=== PATIENT | female | born 1950 | race Caucasian/White ===

== ENCOUNTER → 2017-05-07 | Outpatient (CLI) | payer OTHER | LOC: CIMAGING 10:53 | PROVIDERS: ATTEND Physician Assistant | DX: Z12.31 Encounter for screening mammogram for malignant neoplasm of breast (principal); Z85.3 Personal history of malignant neoplasm of breast | CPT/HCPCS: G0202 ==

== ENCOUNTER 2017-07-07 16:43 | Emergency (ER) | payer OTHER ==
[2017-07-07 16:57] VITALS: TEMP 97.9
--- NOTE | 2017-07-07 17:22 | EDPHY ---
H & P Stated Complaint: TIA Suspicioun Time Seen by Provider: 07/07/17 16:59 HPI/ROS: CHIEF COMPLAINT: TIA HISTORY OF PRESENT ILLNESS: The patient is a 67-year-old female who thinks she may have had a TIA on Friday. She states that she was trying to play a math game on her phone and had trouble remembering arithmetic and the rules of the game which is very unusual for her. She then looked at the calender and could not remember what year it was and thought it very unusual that it was 2017. She then tried playing a different game on her phone and also had trouble with remembering the rules. She states that the symptoms persist for about 30 min and then improved. She did not try to speak with anyone at the time. She did not have any trouble walking or moving. She denies trauma, no headache. No chest pain. No syncope. No dizziness. She does complain of mild left sinus pressure and which she thinks is a sinus infection that began on . No fevers. No neck pain or stiffness. She states that over the last few days however and even today she is having some trouble with her memory. Particularly she is having trouble remembering people's names which she is usually very good at. She does not have any trouble with word finding for normal objects or conversation. She denies history of cardiac disease. She does not take any medications. REVIEW OF SYSTEMS: Constitutional: denies: chills, fever, recent illness, recent injury EENTM: denies: blurred vision, double vision, nose congestion Respiratory: denies: cough, shortness of breath Cardiac: denies: chest pain, irregular heart rate, lightheadedness, palpitations Gastrointestinal/Abdominal: denies: abdominal pain, diarrhea, nausea, vomiting, blood streaked stools Genitourinary: denies: dysuria, frequency, hematuria, pain Musculoskeletal: denies: joint pain, muscle pain Skin: denies: lesions, rash, jaundice, bruising Neurological: See HPI Hematologic/Lymphatic: denies: blood clots, easy bleeding, easy bruising Immunologic/allergic: denies: HIV/AIDS, transplant EXAM: GENERAL: Well-appearing, well-nourished and in no acute distress. HEAD: Atraumatic, normocephalic. EYES: Pupils equal round and reactive to light, extraocular movements intact, sclera anicteric, conjunctiva are normal. ENT: TMs normal, nares patent, oropharynx clear without exudates. Moist mucous membranes. NECK: Normal range of motion, supple without lymphadenopathy or JVD. LUNGS: Breath sounds clear to auscultation bilaterally and equal. No wheezes rales or rhonchi. HEART: Regular rate and rhythm without murmurs, rubs or gallops. ABDOMEN: Soft, nontender, normoactive bowel sounds. No guarding, no rebound. No masses appreciated. BACK: No CVA tenderness, no spinal tenderness, step-offs or deformities EXTREMITIES: Normal range of motion, no pitting or edema. No clubbing or cyanosis. NEUROLOGICAL: NIH stroke score 0. Cranial nerves II through XII grossly intact. Normal speech, normal gait. 5/5 strength, normal movement in all extremities, normal sensation PSYCH: Normal mood, normal affect. SKIN: Warm, dry, normal turgor, no visible rashes or lesions. Source: Patient Exam Limitations: No limitations - Personal History Current Tetanus Diphtheria and Acellular Pertussis (TDAP): Yes - Medical/Surgical History Hx Asthma: No Hx Chronic Respiratory Disease: No Hx Diabetes: No Hx Cardiac Disease: No Hx Renal Disease: No Hx Cirrhosis: No Hx Alcoholism: No Hx HIV/AIDS: No Hx Splenectomy or Spleen Trauma: No Other PMH: DEPRESSION. RT BREAST CANCER. TONSILectomy. APPY. RT ACL repair ( 2000) - Family History Significant Family History: No pertinent family hx - Social History Smoking Status: Former smoker Alcohol Use: Sober Drug Use: None Constitutional: Initial Vital Signs Temperature (C) 36.6 C 07/07/17 16:52 Heart Rate 63 07/07/17 16:52 Respiratory Rate 12 07/07/17 16:52 Blood Pressure 122/71 H 07/07/17 16:52 O2 Sat (%) 96 07/07/17 16:52 O2 Delivery Mode Room Air Allergies/Adverse Reactions: ADHESIVE TAPE Allergy (Uncoded 08/18/15 06:58) Rash Home Medications: Medication Instructions Recorded Ascorbic Acid [Vitamin C 500 mg 1,000 mg PO DAILY 01/12/15 (*)] Cholecalciferol Vit D3 [Vitamin D3 1,000 units PO DAILY 01/12/15 (*)] [place]-3 Fatty Acids [Fish Oil 1000 1,000 mg PO DAILY 01/12/15 mg (*)] Vitamin B Complex [B Complex] 1 each PO DAILY 01/12/15 Acetaminophen [Tylenol 325mg (*)] 650 mg PO Q4 PRN #0 tab 08/18/15 Escitalopram Oxalate [Lexapro 10 10 mg PO DAILY #0 tab 08/18/15 MG] Medical Decision Making - Diagnostics EKG Interpretation: An EKG obtained and was read and documented in trace view. Please see trace view for full reading and report. Sinus rhythm, no acute ischemic changes or arrhythmias Imaging Results: Imaging Impressions Head CT 07/07/17 17:18 Impression: 1. Normal brain. No intracranial hemorrhage, mass, or swelling. 2. Clear sinuses. Findings discussed with Emergency Department physician, Orlando Johnson at 2017, 17:38. Imaging: Discussed imaging studies w/ call specialist Radiologist ED Course/Re-evaluation: 6:50 a.m. the patient is asymptomatic. I recommended admission for further testing including MRI and carotid Dopplers. The patient and refused. I will contact her primary to discussed follow-up as an outpatient and workup as an outpatient. We reviewed the ABCD squared score which is two, together and discussed her risks. I will start her on aspirin. 7 o'clock I discussed the case with Dr. Christianson who agrees with the plan and will follow up with the patient. Differential Diagnosis: Partial list of the Differential diagnosis considered include but were not limited to; TIA, CVA, the infection and although unlikely based on the history and physical exam, I also considered the dissection, arrhythmia, concussion. I discussed these differential diagnoses and the plan with the patient as well as the usual and expected course. The patient understands that the diagnosis is provisional and that in medicine we are not always correct and that further workup is often warranted. Usual and customary warnings were given. All of the patient's questions were answered. The patient was instructed to return to the emergency department should the symptoms at all worsen or return, otherwise to followup with the physician as we discussed. - Data Points Laboratory Results: Laboratory Results 07/07/17 17:45 07/07/17 17:45 07/07/17 07/07/17 07/07/17 18:15 17:45 17:45 WBC RBC Hgb Hct MCV MCH MCHC RDW Plt Count MPV Neut % (Auto) Lymph % (Auto) [place] % (Auto) Eos % (Auto) Baso % (Auto) Nucleat RBC Rel Count Absolute Neuts (auto) Absolute Lymphs (auto) Absolute Monos (auto) Absolute Eos (auto) Absolute Basos (auto) Absolute Nucleated RBC Immature Gran % Immature Gran # PT 13.1 SEC SEC (12.0-15.0) INR 1.00 (0.83-1.16) Sodium 141 mEq/L mEq/L (135-145) Potassium 4.3 mEq/L mEq/L (3.5-5.2) Chloride 100 mEq/L mEq/L (97-110) Carbon Dioxide 28 mEq/l mEq/l (22-31) Anion Gap 13 mEq/L mEq/L (8-16) BUN 16 mg/dL mg/dL (7-23) Creatinine 0.8 mg/dL mg/dL (0.6-1.0) Estimated GFR > 60 Glucose 95 mg/dL mg/dL (70-100) Calcium 9.3 mg/dL mg/dL (8.5-10.4) Urine Color YELLOW Urine Appearance CLEAR Urine pH 6.0 (5.0-7.5) Ur Specific [place] 1.010 (1.002-1.030) Urine Protein NEGATIVE (NEGATIVE) Urine Ketones NEGATIVE (NEGATIVE) Urine Blood TRACE H (NEGATIVE) Urine Nitrate NEGATIVE (NEGATIVE) Urine Bilirubin NEGATIVE (NEGATIVE) Urine Urobilinogen 0.2 EU EU (0.2-1.0) Ur Leukocyte Esterase TRACE H (NEGATIVE) Urine RBC 3-5 /hpf H /hpf (0-3) Urine WBC 1-3 /hpf /hpf (0-3) Ur Epithelial Cells 1+ /lpf /lpf (NONE-1+) Urine Glucose NEGATIVE (NEGATIVE) 07/07/17 17:45 WBC 5.91 10^3/uL 10^3/uL (3.80-9.50) RBC 4.38 10^6/uL 10^6/uL (4.18-5.33) Hgb 13.6 g/dL g/dL (12.6-16.3) Hct 39.7 % % (38.0-47.0) MCV 90.6 fL fL (81.5-99.8) MCH 31.1 pg pg (27.9-34.1) MCHC 34.3 g/dL g/dL (32.4-36.7) RDW 12.9 % % (11.5-15.2) Plt Count 243 10^3/uL 10^3/uL (150-400) MPV 9.4 fL fL (8.7-11.7) Neut % (Auto) 61.4 % % (39.3-74.2) Lymph % (Auto) 29.4 % % (15.0-45.0) [place] % (Auto) 6.8 % % (4.5-13.0) Eos % (Auto) 1.5 % % (0.6-7.6) Baso % (Auto) 0.7 % % (0.3-1.7) Nucleat RBC Rel Count 0.0 % % (0.0-0.2) Absolute Neuts (auto) 3.63 10^3/uL 10^3/uL (1.70-6.50) Absolute Lymphs (auto) 1.74 10^3/uL 10^3/uL (1.00-3.00) Absolute Monos (auto) 0.40 10^3/uL 10^3/uL (0.30-0.80) Absolute Eos (auto) 0.09 10^3/uL 10^3/uL (0.03-0.40) Absolute Basos (auto) 0.04 10^3/uL 10^3/uL (0.02-0.10) Absolute Nucleated RBC 0.00 10^3/uL 10^3/uL (0-0.01) Immature Gran % 0.2 % % (0.0-1.1) Immature Gran # 0.01 10^3/uL 10^3/uL (0.00-0.10) PT INR Sodium Potassium Chloride Carbon Dioxide Anion Gap BUN Creatinine Estimated GFR Glucose Calcium Urine Color Urine Appearance Urine pH Ur Specific Hyder Urine Protein Urine Ketones Urine Blood Urine Nitrate Urine Bilirubin Urine Urobilinogen Ur Leukocyte Esterase Urine RBC Urine WBC Ur Epithelial Cells Urine Glucose Medications Given: Discontinued Medications Aspirin (Aspirin) 324 mg PO EDNOW ONE Stop: 07/07/17 18:50 Last Admin: 07/07/17 19:10 Dose: Not Given Departure - Departure Disposition: Home, Routine, Self-Care Clinical Impression: Transient cerebral ischemia Qualifiers: Transient cerebral ischemia type: unspecified Qualified Code(s): G45.9 - Transient cerebral ischemic attack, unspecified Condition: Fair Instructions: Transient Ischemic Attack (ED) Additional Instructions: Begin taking a baby aspirin daily Referrals: CARMELO WILLARD [Primary Care Provider] - As per Instructions
[2017-07-07 17:49] LABS: PLATELET COUNT 243 10^3/uL (150-400)
[2017-07-07 17:58] LABS: PROTIME(PATIENT) 13.1 SEC (12.0-15.0)
--- NOTE | 2017-07-07 18:38 | CPEKG ---
Heart Rate: 61 RR Interval: 984 P-R Interval: 136 QRSD Interval: 92 QT Interval: 436 QTC Interval: 440 P Rake: 57 QRS Rake: -36 T Wave Rake: 39 EKG Severity - ABNORMAL ECG - EKG Impression: SINUS RHYTHM EKG Impression: LEFT AXIS DEVIATION EKG Impression: PROBABLE POSTERIOR INFARCT EKG Impression: Unchanged from previous Electronically Signed By: Orlando Johnson 07-Jul-2017 18:50:51
[2017-07-07] MEDS ORDERED: ASPIRIN 81 MG CHEWABLE TAB PO ONE (18:49)
[2017-07-07 19:20] VITALS: BP 133/86; PULSE 66; RESP 18; O2SAT 97
== END 2017-07-07 19:14 | disposition home or self-care (01) ==
LOC: CED 16:43
DX: G45.9 Transient cerebral ischemic attack, unspecified (principal); Z85.3 Personal history of malignant neoplasm of breast; Z87.891 Personal history of nicotine dependence
CPT/HCPCS: 70450-PO; 80048-PO; 81003-PO; 81015-PO; 85025-PO; 85610-PO